=== PATIENT | male | born 1945 | race Caucasian/White ===

== ENCOUNTER 2017-01-02 05:10 | Day surgery (SDC) | payer OTHER ==
[2017-01-02] VITALS (10 sets, daily range): BP systolic 123–151; BP diastolic 51–66; PULSE 45–53; TEMP 36.6; O2SAT 93–98; Ht 167.6 cm; Wt 73.5 kg
[~2017-01-02] VITALS: Ht 167.6 cm; Wt 73.5 kg
[~2017-01-02 05:10] MED LIST: PATIENT'S ALLERGY INFO NEEDS ENTERED SCH; SODIUM CHLORIDE 0.9% 1000ML 1,000 ML IV ONE
[2017-01-02] MEDS ORDERED: ASPI81TA28 PO (05:48)
[2017-01-02] MEDS ORDERED: ATOR-26 PO (05:48)
[2017-01-02] MEDS ORDERED: METF-384 PO (05:48)
[2017-01-02] MEDS ORDERED: SERT50TA PO (05:48)
[2017-01-02] MEDS ORDERED: CLOP1TAB15 PO (05:48)
[2017-01-02] MEDS ORDERED: NTRSL3 UT (05:48)
[2017-01-02] MEDS ORDERED: AMLO-114 PO (05:48)
[2017-01-02] MEDS ORDERED: METO50TA7 PO (05:49)
[2017-01-02] MEDS ORDERED: INSDGIPEN SC (05:50)
[2017-01-02] MEDS ORDERED: NVLGI/PEN SQ (05:51)
[2017-01-02] MEDS ORDERED: HYZ/10015 PO (05:52)
[2017-01-02] MEDS ORDERED: CEFAZOLIN 1000MG IV PUSH 5 ML IV SCH (06:00)
--- NOTE | 2017-01-02 06:30 | History and Physical ---
History & Physical Date Jan 02, 2017. Chief Complaint Severe left leg claudication History of Present Illness The patient is a 71 year old male who had stents placed in his right superficial femoral artery in January of last year. He is recently over the last 5-6 week developed pain in his left leg at approximately 20 yards and it starts at the calf and involves the thigh. He has to stop walking and has relieved fairly quickly. He also complains of thigh pain at night when in bed, which may not be related to his arterial disease. Vitals Vital Signs Past 12 Hours Date Time Temp Pulse Resp B/P (MAP) Pulse Ox O2 Delivery O2 Flow Rate FiO2 01/02/17 05:45 36.6 51 18 151/66 (94) 94 Room Air Allergies Coded Allergies: No Known Allergies (Unverified , 01/02/17) PER ORDERS Home Medications Scheduled Amlodipine (Norvasc), 10 MG PO DAILY Aspirin (Aspirin Ec), 81 MG PO DAILY Atorvastatin (Lipitor), 80 MG PO QPM Clopidogrel (Plavix), 75 MG PO DAILY Hctz/Losartan (Hyzaar 25MG/100MG), 1 TAB PO DAILY Insulin Aspart (Novolog Flexpen), 0-10 UNITS SQ DIRECTED Insulin Glargine (Lantus Solostar), 34 UNITS SC QPM Metformin Hcl (Glucophage), 1,000 MG PO BID Metoprolol Succ (Toprol Xl) (Toprol-Xl), 50 MG PO QAM Nitroglycerin (Nitrostat), 0.3 MG UT PRN Sertraline (Zoloft), 50 MG PO QPM Surgical / Medical History Hx Cardiac Surgery: Yes (cabg;stents) Hx Abdominal Surgery: Yes (appendectomy;cholecystectomy) Hx Cancer Surgery: No Hx Thoracic Surgery: No Hx Orthopedic: Yes (left shoulder) Hx Urinary Tract Surgery: Yes (kidney stone/lithotripsy) HX Other Surgery: Yes (uvula and tonsils ) Social History Smoking Status: Light Tobacco Smoker Hx Tobacco Use In Past Year?: Yes (quit cigarettes 18 years ago; rare cigar use now) Hx Alcohol Use - Type & Amnt: Yes (two drinks weekly) Hx Substance Use -Type & Amnt: No Review of Systems Constitutional: No chills, No diaphoresis, No fever, No malaise, No weakness, No weight gain, No weight loss, No sweats, No fatigue, No problem reported Respiratory: No cough, No cyanosis, No BECERRIL, No hemoptysis, No orthopnea, No PND , No short of breath, No sputum production, No stridor, No wheezing, No dyspnea , No problem reported Cardiovascular: No chest pain, No chest tightness, No chest pressure, No palpitations, No syncope, No diaphoresis, No edema, No intermittent claudication , No orthopnea, No cyanosis, No mumur, No lightheadedness, No paroxysmal nocturnal dyspnea, No problem reported Gastrointestinal: No abdominal pain, No constipation, No diarrhea, No nausea, No vomiting, No anorexia, No appetite changes, No belching, No flatulence, No food intolerance, No hematemesis, No hemorrhoids, No hematochezia, No stool changes, No heartburn, No indigestion, No dysphagia, No rectal bleeding, No problem reported Genitourinary - Male: No impotence, No penile discharge, No penile itching, No rash, No testicular pain, No testicular swelling, No hematuria, No difficulty urinating, No problem reported Musculoskeletal: + muscle pain, No back pain, No gout, No joint pain, No joint swelling, No muscle stiffness, No muscle weakness, No neck pain, No problem reported Neurologic: No dizziness, No weakness, No headache, No lethargy, No numbness, No paresthesia, No pre-existing deficit, No seizures, No tics, No tingling, No tremors, No vertigo, No memory loss, No LOC, No problem reported Psychiatric: No anxiety, No alcohol abuse, No auditory hallucinations, No depression, No drug abuse, No homicidal ideation, No mood changes, No suicidal ideation, No visual hallucinations, No problem reported Physical Exam Constitutional: General Apperance: heathly-appearing, well-nourished, well-developed Level of Distress: NAD Ambulation: ambulating normally Psychiatric: Mental Status: active & alert, normal mood, normal affect Orientation: oriented except where noted, to time, to place, to person Memory: recent memory normal, remote memory normal Head: normocephalic Neck: supple Lungs: Auscultation: breath sounds normal Cardiovascular: Heart Auscultation: RRR Peripheral Pulses: Carotid Pulse: normal on the left, normal on the right Radial Pulse: normal on the left, normal on the right Femoral Pulse: normal on the left, normal on the right Posterior Tibialis Pulse: normal on the right, absent on the left Dorsalis Pedis Pulse: absent on the left, absent on the right Abdomen: Inspection & Palpation: soft, no masses Musculoskeletal: normal Extremities: Upper Right: no cyanosis, no edema, no varicosities, no palpable cord, no clubbing, no ulcers, no mottling Upper Left: no cyanosis, no edema, no varicosities, no palpable cord, no clubbing, no ulcers, no mottling Lower Right: no cyanosis, no edema, no varicosities, no palpable cord, no clubbing, no ulcers, no mottling Lower Left: no cyanosis, no edema, no varicosities, no palpable cord, no clubbing, no ulcers, no mottling Neurologic: Cranial Nerves: grossly intact Sensation: grossly intact Assessment and Plan Imp: Left superficial femoral artery occlusion with claudication Plan: Patient is admitted for arteriography with possible intervention. I have discussed the risks options and benefits of the procedure with the patient. The patient understands the risks options and benefits and agrees to the procedure.
[2017-01-02 06:52] LABS: CREATININE 1.13 mg/dl (0.60-1.40)
[2017-01-02] MEDS ORDERED: FENTANYL CITRATE INJ 50 MCG/1 ML 2 ML VIAL ONE (07:46)
[2017-01-02] MEDS ORDERED: MIDAZOLAM HCL 1 MG/ML 2ML VIAL ONE (07:46)
[2017-01-02] MEDS ORDERED: HEPARIN SOD (PORCINE) 1000 UNIT/ML 10 ML VIAL ONE (07:46)
--- NOTE | 2017-01-02 08:09 | Procedure Note ---
Pre-Mod Sedation Assessment General Date of Moderate Sedation: Jan 02, 2017. Vital Signs: Vital Signs Past 12 Hours Date Time Temp Pulse Resp B/P (MAP) Pulse Ox O2 Delivery O2 Flow Rate FiO2 01/02/17 07:45 36.6 51 18 151/66 94 Room Air 01/02/17 05:45 36.6 51 18 151/66 (94) 94 Room Air Pre-Sedation Airway Assessment Oral Cavity: Dentures Short Thick Neck: No Hx of Sleep Apnea: Yes Smoking Status: Light Tobacco Smoker Mallampati Classification: Class I ASA Classification: Class II Notes The planned sedation has been discussed with the patient and consent obtained. I have identified the patient, determined the appropriateness of sedation and have assessed the patient immediately prior to the procedure. All medicine(s) and interventions are by my order.
[2017-01-02] MEDS ORDERED: MIDAZOLAM HCL 1 MG/ML 2ML VIAL IV ONE ×2 (08:39→08:52)
[2017-01-02] MEDS ORDERED: FENTANYL CITRATE INJ 50 MCG/1 ML 2 ML VIAL IV ONE ×2 (08:39→08:52)
[2017-01-02] MEDS ORDERED: LIDOCAINE HCL 1% 20 ML VIAL INJ ONE (08:40)
[2017-01-02] MEDS ORDERED: HEPARIN SOD (PORCINE) 1000 UNIT/ML 10 ML VIAL IV ONE (08:44)
[2017-01-02] MEDS ORDERED: IODIXANOL (VISIPAQUE) 270 MG/ML 150ML IV ONE (08:45)
--- NOTE | 2017-01-02 09:20 | [facility] Operative Report ---
Operative Report Operative Date Jan 02, 2017. Pre-Operative Diagnosis left common iliac stenosis Post-Operative Diagnosis same Procedure(s) Performed Left Lower Extremity Angiogram, Percutaneous Transluminal Angioplasty and Stenting Of Left Common Iliac Artery, Mechanical Closure Right Femoral Artery, Moderate Concious Sedation [address] Jules Director Life Surgeon(s) none Estimated Blood Loss 10 ml Findings Severe stenosis of the left common iliac artery, left anterior tibial and posterior tibial artery occlusion Specimens none Anesthesia local with conscious sedation Complication(s) None Disposition Indications This is a 71-year-old gentleman with severe claudication of left lower extremity. Arteriography and possible intervention was recommended of his iliac artery. I have discussed the risks options and benefits of the procedure with the patient. The patient understands the risks options and benefits and agrees to the procedure. Description of Procedure Patient was taken the angiogram suite and placed in the supine position. Both groins were then prepped and draped in a sterile manner. Local anesthetic was administered to the right femoral area. The right femoral artery was then punctured and an 035 wire was inserted. A 5 [place] sheath was inserted over the wire. Using an 035 wire and a rim catheter the rim catheter was passed up to the bifurcation. Arteriography was then performed which showed a severe stenosis of the left common iliac artery in the midportion. The external iliac artery and common femoral arteries are widely patent. The 035 wire was then reinserted through the rim catheter. The wire and rim catheter was advanced down the left side to the common femoral artery. A left lower extremity arteriogram was then performed. This showed the superficial femoral and profunda femoral arteries to be widely patent. The popliteal was also widely patent. The infrapopliteal arteries showed the anterior tibial and posterior tibial arteries to be occluded at their origin. The peroneal artery was widely patent all the way down to the foot without evidence of stenoses. The peroneal then reconstituted the posterior tibial and the dorsalis pedis distally. It was decided at this time to stent the left common iliac artery. This was then measured. It measured 9-1/2millimeters in size. We then exchanged the 035 wire to a stiffened Glidewire through the rim catheter. The rim catheter was then removed. The 5 [place] sheath was exchanged and upsized to an 8 [place] destination. The destination sheath was then placed right at the aortic bifurcation. We used an 11 x 39 Viabahn XL covered stent. Once this was passed and positioned in the left common iliac artery, the position was confirmed with a hand injection. The stent was then deployed without difficulty. Completion angiogram done at that time showed no residual stenosis in the left common iliac artery with excellent flow. The destination sheath was then pulled down into the external iliac on the right side. Hand injection showed the puncture site to be anterior in the common femoral artery. We then used the Star closure device to close the puncture site in the right groin. Adequate hemostasis was seen at the end of the procedure. Sterile dressing were applied. The patient left the angiogram suite in good condition and tolerated the procedure well. I attest to the content of the Intraoperative Record and any orders documented therein. Any exceptions are noted below.
--- NOTE | 2017-01-02 09:21 | Procedure Note ---
Post-Moderate Sedation Plan General Date of Moderate Sedation Jan 02, 2017. Vital Signs: Vital Signs Past 12 Hours Date Time Temp Pulse Resp B/P (MAP) Pulse Ox O2 Delivery O2 Flow Rate FiO2 01/02/17 07:45 36.6 51 18 151/66 94 Room Air 01/02/17 05:45 36.6 51 18 151/66 (94) 94 Room Air Review - Discharge Plan Post Moderate Sedation Plan: On clinical assessment, the patient appears to have tolerated the conscious sedation without complications. Patient is recovering as anticipated. Patient will continue to be monitored by nursing and may be discharged when conscious sedation discharge criteria are met.
--- NOTE | 2017-01-02 09:22 | Discharge Instructions ---
Discharge Instructions Date of Service Jan 02, 2017. Visit Reason for Visit: Left Iliac Stenosis & Superficial Femoral Artery S Discharge Discharge Diagnosis / Problem: 'Left common iliac artery stenosis, stenting of left common iliac artery Discharge Goals Goal(s): Therapeutic intervention Activity Recommendations Activity Limitations: per Instructions/Follow-up section Anesthesia . Post Anesthesia Instructions: If you have had General Anesthesia or IV Sedation: * Do not drive today. * Resume driving when surgeon permits. * Do not make important decisions or sign legal documents today. * Call surgeon for: 1. Temperature elevations greater than 101 degrees F. 2. Uncontrollable pain. 3. Excessive bleeding. 4. Persistent nausea and vomiting. 5. Medication intolerance (nausea, vomiting or rash). * For nausea and vomiting use only clear liquids such as: tea, soda, bouillon until nausea subsides, then gradually increase diet as tolerated. * If you have any concerns or questions, call your surgeon's office. If physician is unavailable and it is an emergency, call 911 or go to the nearest emergency room. . Instructions / Follow-Up Instructions / Follow-Up SPECIAL CARE INSTRUCTIONS: Medications: * Continue to take your medications as directed. If you have been given a prescription for Plavix, please fill it immediately and take as directed. Incision Care: * Your puncture site may have some bruising and minor swelling for about one week. * You will have a small dressing covering your puncture site. You may remove the dressing after 24 hours and shower. You may let the warm soapy water run over it, but be sure to dry the puncture site well and keep it dry. * DO NOT IMMERSE THE INCISION IN A TUB/POOL/etc. UNTIL HEALED. * Puncture sites should be kept covered with a band-aid until it begins to heal. Restrictions: * Depending on whether you leg or arm was punctured to access the arteries, you will be required to lay flat, hold your arm still, or both, for about 4 hours after the procedure to prevent bleeding. * Limit your activity for the first 48 hours. You may walk and go up and down steps. Avoid excessive bending or movement at the puncture site. Possible Complications: * Excessive Swelling - after blood flow is improved you may notice increased swelling in the lower legs. This is a normal response. This usually depends on the amount of blockages in the leg, how long they have been there prior to your procedure and how much blood flow was restored. Elevating your legs will help to improve this. Please notify our office ([phone] ) if the swelling does not go away after lying in bed overnight. * Infection/Drainage/Bleeding - Drainage or bleeding from the puncture site should be minimal. If you have excessive bleeding or drainage, call our office ([phone]) right away. * Pain - You may experience some mild pain or soreness at your puncture site. If your pain does not improve, please contact our office ([phone]). Call your doctor and seek emergent treatment if you develop: * Temperature above 101 degrees * Any fever or chills * Any redness or purulent drainage from the puncture site * Any new dusky/blue colored toes or feet with coolness or sharp or aching pain. SKIN IRRITATION: * You may experience some redness and/or swelling in the area where radiation was administered. If any skin irritation occurs, please contact your family physician. FOLLOW UP VISIT: Keep any scheduled doctor appointments. Diet Recommendations Recommended Home Diet: resume previous diet Procedures Procedures Performed: Left Lower Extremity Angiogram, Percutaneous Transluminal Angioplasty and Stenting Of Left Common Iliac Artery, Mechanical Closure Right Femoral Artery, Moderate Concious Sedation 0839 to 0909 Pending Studies Studies pending at discharge: no Medical Emergencies . Who to Call and When: Medical Emergencies: If at any time you feel your situation is an emergency, please call 911 immediately. . Non-Emergent Contact Non-Emergency issues call your: Surgeon . . "Provider Documentation" section prepared by Ubaldo Jules. .
== END 2017-01-02 12:30 | disposition home or self-care (01) ==
LOC: C.ACU 05:10
PROVIDERS: ATTEND Surgery Vascular Surgery
DX: I77.1 Stricture of artery (principal); I74.3 Embolism and thrombosis of arteries of the lower extremities; I73.9 Peripheral vascular disease, unspecified; Z79.899 Other long term (current) drug therapy; Z79.02 Long term (current) use of antithrombotics/antiplatelets; Z79.82 Long term (current) use of aspirin; Z79.4 Long term (current) use of insulin; Z95.1 Presence of aortocoronary bypass graft; Z90.89 Acquired absence of other organs; Z90.49 Acquired absence of other specified parts of digestive tract; Z98.890 Other specified postprocedural states; F17.200 Nicotine dependence, unspecified, uncomplicated